=== PATIENT | female | born 2000 | race Caucasian/White ===

== ENCOUNTER 2020-10-04 11:03 | Outpatient (REF) | payer OTHER, SELFPAY ==
[2020-10-04 14:25] LABS: Hematocrit 36.4 % (37-47); Hemoglobin 11.6 g/dl (12.0-16.0); Mean Corpuscular HGB Conc 31.9 g/dl (31.0-35.0); Mean Corpuscular Hemoglobin 29.4 pg (27.0-33.0); Mean Corpuscular Volume 92.2 fL (80-98); Mean Platelet Volume 11.8 fL (9.4-12.3); Platelet Count 239 X10*3/uL (160-400); Red Blood Count 3.95 X10*6/uL (4.20-5.50); Red Cell Distribution Width 12.2 % (11.0-16.0); White Blood Count 5.2 X10*3/uL (4.8-10.8)
[2020-10-04 15:08] LABS: TSH reflex Free T4 0.26 mIU/mL (0.32-4.0)
[2020-10-04 16:13] LABS: Free T4 (Free Thyroxine) 1.09 ng/dL (0.71-1.85)
== END 2020-10-04 11:04 | disposition home or self-care (01) ==
LOC: HO.10HDL 11:03
PROVIDERS: Visit Provider Internal Medicine Gastroenterology
DX: R13.10 Dysphagia, unspecified (principal); R93.3 Abnormal findings on diagnostic imaging of other parts of digestive tract
CPT/HCPCS: 36415; 84439; 84443; 85027

== ENCOUNTER 2020-10-11 12:27 | Day surgery (SDC) | payer OTHER, SELFPAY ==
[2020-10-06 12:32] VITALS: BMI 33.2
--- NOTE | 2020-10-10 10:26 | HO.ANESPROP2 ---
Documented by User: Agata Dave 10/10/20 10:28 HPI - Anesthesia Eval Consult details Narrative: 20yo F for Upper Endoscopy with Balloon Dilitation [facility] Past Medical History Medical History Anemia Depression Dysphagia Surgical History Surgical History No history of previous surgery Social History Social History Alcohol intake: current Alcohol intake frequency: holidays/special occasions only Smoking Status: Never smoker Use of substances other than those prescribed or required for medical reasons: No Advance Directives Information Provided: No Recently lost weight without trying: No Meds Allergies Allergy/AdvReac Type Severity Reaction Status Date / Time No Known Allergies Allergy Verified 10/06/20 12:37 Home Medications Medication Instructions Recorded Confirmed Type No Known Home Meds 10/06/20 10/06/20 History Exam Exam Date and Time: October 10, 2020 1026 Height,Weight and Vital Signs: Height 5 ft 1 in Weight 79.832 kg Pertinent Lab Results Pertinent Lab Results: Laboratory Tests 10/04/20 11:11 WBC 5.2 RBC 3.95 L Hgb 11.6 L Hct 36.4 L Plt Count 239 Assessment and Plan Assessment Anesthesia Assessment: Chart Reviewed Documented by User: Eliza Vivar 10/11/20 13:39 [facility] Past Medical History Medical History Anemia Depression Dysphagia Surgical History Surgical History No history of previous surgery Social History Social History Alcohol intake: current Alcohol intake frequency: holidays/special occasions only Smoking Status: Never smoker Use of substances other than those prescribed or required for medical reasons: No Advance Directives Information Provided: No Recently lost weight without trying: No Meds Allergies Allergy/AdvReac Type Severity Reaction Status Date / Time No Known Allergies Allergy Verified 10/06/20 12:37 Home Medications Medication Instructions Recorded Confirmed Type No Known Home Meds 10/06/20 10/06/20 History Exam Airway Mallampati Class: I TM Dist: >3cm Neck ROM: Full Heart: RRR Lungs: CTA BL Assessment and Plan Assessment Anesthesia Assessment: Anesthesia Plan Discussed and Chart Reviewed Final Anesthetic Review NPO: Yes ASA Class: II Final Preanesthetic Review: Meds/Allgs Chart Reviewed and Consent Obtained/Reviewed Patient Risk: Intermediate Procedure Risk: Intermediate Anesthetic Plan Anesthetic Plan: MAC: Disposition: Standard PACU
[2020-10-11 13:09] VITALS: BP 112/68; PULSE 85; RESP 16; TEMP 36.1; O2SAT 98
[2020-10-11] MEDS: Lactated Ringers 1,000 ML 100 ML IVCONT (13:12)
[2020-10-11 13:28] LABS: UPreg QC Valid YES; Urine Pregnancy NEGATIVE (NEGATIVE)
--- NOTE | 2020-10-11 13:38 | MHC.SHP ---
Pre-Procedural Eval Section A The patient is an INPATIENT: No Changes since office visit: No Cold of Flu in the past 2 weeks, No New Medical Problems, No Changes in Medication and No Patient answered all questions The History & Physical has been completed within 30 days and I have reviewed it.: Yes Section B Chief Complaint: dysphagia Allergies: Allergies Allergy/AdvReac Type Severity Reaction Status Date / Time No Known Allergies Allergy Verified 10/06/20 12:37 Plan Patient has been examined and remains a candidate for the planned procedure
--- NOTE | 2020-10-11 14:03 | PM.OP ---
Brief Operative Note Date of Service: 10/11/20 Pre-op diagnosis: dysphagia, abnormal barium swallow Post-op diagnosis: same Procedure: EGD Surgeon: William Schwab Anesthesia: MAC Estimated blood loss (mL): 5 Pathology: other (antrum, distal esophagus bx's) Condition: stable Disposition: PACU
[2020-10-11 14:13] VITALS: BP 95/54; PULSE 87; RESP 14; TEMP 36.2; O2SAT 97
[2020-10-11 14:25] VITALS: BP 107/64; PULSE 76; RESP 16; O2SAT 98
--- NOTE | 2020-10-11 14:53 | HO.POSTANES ---
Post Anesthesia Evaluation Post Anesthesia Evaluation Vital Signs: Vital Signs Temp Pulse Resp BP Pulse Ox 10/11/20 14:25 97.2 F 76 16 107/64 98 10/11/20 14:13 97.2 F 87 14 95/54 L 97 10/11/20 13:09 97.0 F 85 16 112/68 98 Anesthesia: Monitored Mental Status: Awake Pain Control: Satisfactory Nausea/Vomiting: None Hydration: Adequate Anesthesia-Related Issues: No Anes. Related Issues
--- NOTE | 2020-10-11 16:45 | OP_ITS ---
SURGEON: William Schwab MD INDICATIONS: Dysphagia and abnormal upper GI series. PREOPERATIVE DIAGNOSIS: POSTOPERATIVE DIAGNOSIS: PROCEDURE PERFORMED: Upper endoscopy with balloon dilation and biopsy. ESTIMATED BLOOD LOSS: COMPLICATIONS: ANESTHESIA: ASSISTANTS: SPECIMENS: MEDICATIONS: Monitored anesthesia care. DESCRIPTION OF PROCEDURE: History and physical performed. The risks and benefits of the procedure were explained to the patient. Informed consent was obtained. The patient was placed in the left lateral decubitus position. The Olympus video gastroscope was introduced into the esophagus, stomach, and duodenum. Examination was performed and the scope was removed. She tolerated the procedure well and was taken to recovery area in stable condition. FINDINGS: Esophagus: There was an inlet patch just below the EG junction, just below the upper esophageal sphincter. No definite narrowing or stricture was identified. The scope passed easily through the esophagus into the stomach. The EG junction was normal. Stomach: Stomach showed no evidence of masses, ulcers, or polyps. Duodenum: The bulb and second portion were normal. Biopsies were obtained from the antrum and from the distal esophagus. Because of the patient's complaints and x-ray findings, balloon dilation of the upper esophagus and upper esophageal sphincter to 18 mm was performed for 60 seconds with no complications. IMPRESSION: 1. Dysphagia. 2. Normal upper endoscopy. RECOMMENDATION: Follow up the biopsy results. MD LONI Travis/CODY / [id number] MTDD
== END 2020-10-11 14:53 | disposition home or self-care (01) ==
PROVIDERS: Nurse Practitioner; PCP Internal Medicine; Visit Provider Internal Medicine Gastroenterology
PROC: (CPT 43249; principal; 2020-10-11 13:40)
DX: R13.10 Dysphagia, unspecified (principal); R93.3 Abnormal findings on diagnostic imaging of other parts of digestive tract; K20.90 Esophagitis, unspecified without bleeding
CPT/HCPCS: 43249; 43239; 81025; 88305; 88342; C1726

== ENCOUNTER 2020-12-08 13:12 | Outpatient (REF) | payer OTHER, SELFPAY | END 2020-12-08 13:13 | disposition home or self-care (01) | LOC: HO.LAB 13:12 | PROVIDERS: Visit Provider Internal Medicine | DX: Z20.822 Contact with and (suspected) exposure to COVID-19 (principal) | CPT/HCPCS: 36415; C9803; U0003; U0005 ==

== ENCOUNTER 2021-12-03 13:30 | Outpatient (REF) | payer OTHER, SELFPAY ==
[2021-12-03 13:58] LABS: MANUAL DIFF FLAG NO
[2021-12-03 14:46] LABS: Basophils Percent Auto 0.7 % (0-2); Eosinophils Absolute Auto 0.1 X10*3/uL (0.0-0.4); Eosinophils Percent Auto 2.7 % (0-4); Hematocrit 36.8 % (37.0-47.0); Hemoglobin 11.7 g/dl (12.0-16.0); Imm Gran Abs Auto 0.01 X10*3/uL (0.00-0.03); Imm Gran Pct Auto 0.2 % (0.0-0.4); Lymphocytes Absolute Auto 1.4 X10*3/uL (1.2-4.9); Lymphocytes Percent Auto 30.5 % (20-40); Mean Corpuscular HGB Conc 31.8 g/dl (31.0-35.0); Mean Corpuscular Hemoglobin 28.6 pg (27.0-33.0); Mean Platelet Volume 11.7 fL (9.4-12.3); Monocytes Absolute Auto 0.3 X10*3/uL (0.1-1.2); Monocytes Percent Auto 7.2 % (2-11); Neutrophils Absolute Auto 2.6 x10*3/uL (2.0-8.3); Neutrophils Percent Auto 58.7 % (45-73); Platelet Count 226 X10*3/uL (160-400); Red Blood Count 4.09 X10*6/uL (4.20-5.50); Red Cell Distribution Width 12.9 % (11.0-16.0); White Blood Count 4.5 X10*3/uL (4.8-10.8)
[2021-12-03 15:24] LABS: Alanine Aminotransferase 14 U/L (0-31); Albumin Level 4.5 g/dL (3.5-5.0); Alkaline Phosphatase 89 U/L (39-117); Anion Gap 12 (12-20); Aspartate Amino Transferase 13 U/L (5-31); Bilirubin Total 0.8 mg/dL (0.0-1.0); Blood Urea Nitrogen 14 mg/dL (9-16); Calcium 9.5 mg/dL (8.4-10.2); Carbon Dioxide 26 mmol/L (22-29); Chloride 107 mmol/L (96-108); Cholesterol 205 mg/dL; Estimated Glomerular Filt Rate > 60; Glucose Random 88 mg/dL (60-115); HDL Cholesterol 65 mg/dL; LDL Cholesterol Calculated 128 mg/dl; Potassium 4.3 mmol/L (3.3-5.1); Sodium 141 mmol/L (135-145); Total Protein 7.6 g/dL (6.5-8.0); Triglycerides 61 mg/dL
[2021-12-03 15:35] LABS: Ferritin 18 ng/mL (10-122); TSH reflex Free T4 0.46 uIU/mL (0.32-4.0)
== END 2021-12-03 13:31 | disposition home or self-care (01) ==
LOC: HO.LAB 13:30
PROVIDERS: PCP Internal Medicine; Visit Provider Internal Medicine
DX: D50.8 Other iron deficiency anemias (principal); R53.83 Other fatigue
CPT/HCPCS: 36415; 80053; 80061; 82728; 84443; 85025